=== PATIENT | female | born 1960 | race Caucasian/White ===

== ENCOUNTER 2017-10-09 06:30 | Day surgery (SDC) | payer BC ==
[2017-10-09] MEDS ORDERED: ceFAZolin 1 GM Vial ONE (06:35)
[2017-10-09] MEDS ORDERED: Lidocaine 1% 30 ML SDV ONE (06:50)
[2017-10-09] MEDS ORDERED: Bupivacaine 0.25% 30 ML SDV ONE (06:50)
[2017-10-09] MEDS ORDERED: Lactated Ringers 1,000 ML IV SCH (07:00)
[2017-10-09] MEDS ORDERED: Lidocaine 1%/Sod Bicarbonate in NS 8.4% 1 ML Syringe IDERM PRN (07:00)
[2017-10-09] MEDS ORDERED: Sodium Chloride 0.9% 10 ML Syringe FLUSH PRN (07:00)
[2017-10-09 07:52] VITALS: BP 140/58
--- NOTE | 2017-10-13 07:05 | PCM.OPNOTE ---
- General Post-Op/Procedure Note Date of Surgery/Procedure: 10/09/17 Operative Procedure(s): left third and fourth finger a1 randal release Pre Op Diagnosis: left third and fourth stenosing tenosynovitis Post-Op Diagnosis: Same Anesthesia Technique: Local Primary Surgeon: Hector Coats Head Of Talent Management: Mariama Mcdonald in mLs: 5 Complications: None Condition: Good
--- NOTE | 2017-10-15 10:22 | OR ---
DATE OF OPERATION: 10/09/2017 SURGEON: Hector Coats MD OPERATION PERFORMED: Left 3rd and 4th finger A1 randal release. PREOPERATIVE DIAGNOSIS: Left 3rd and 4th finger stenosing tenosynovitis. POSTOPERATIVE DIAGNOSIS: Left 3rd and 4th finger stenosing tenosynovitis. ANESTHESIA: Local. ANESTHESIOLOGIST: None. BELLMAN: Mariama Mcdonald PA-C. ESTIMATED BLOOD LOSS: 5 mL. COMPLICATIONS: None. CONDITION: Stable. DESCRIPTION OF PROCEDURE: The patient was identified in the preop holding area where the proper site was marked and identified by the surgeon. The patient was taken back to the operative theater where the left upper extremity was sterilely prepped and draped in the usual sterile fashion. OR time-out was performed. The patient did not receive antibiotics, not indicated for soft tissue hand procedure at this time. A 1% lidocaine without epinephrine and 0.25% lidocaine without epinephrine was used to anesthetize over the A1 pulleys of both the 3rd and 4th fingers of left hand. Then, an Esmarch was used on the forearm as the tourniquet. A standard transverse incision was made over first the 3rd finger. Blunt dissection was taken down the A1 randal. Ragnell retractors were placed medial and laterally to protect the neurovascular bundles. Hampton blade was then used to resect the A1 randal and was found to have adequate excursion of the tendon with no tendon adhesions. At this time, attention was turned to the 4th finger. A same transverse incision. Again, the Ragnell retractors were placed and a Hampton blade again was used for resection of the A1 randal. At this time, it was noted to be significantly thickened, so I did resect part of the A1 randal completely. At this time, the tendon was brought through the wound bed and the patient made a full fist and she had no triggering noticed at this time. Adequate saline was irrigated through the wound. 4-0 nylon simple suture was used for closure of the skin. The patient had sterile soft dressing applied and sent to PACU in stable condition. JONA /[id number]
== END 2017-10-09 08:10 | disposition home or self-care (01) ==
LOC: JD.SDS 06:30
PROVIDERS: ATTEND Orthopaedic Surgery
DX: M65.842 Other synovitis and tenosynovitis, left hand (principal); M65.342 Trigger finger, left ring finger; M65.332 Trigger finger, left middle finger; I10 Essential (primary) hypertension; E10.9 Type 1 diabetes mellitus without complications; E03.9 Hypothyroidism, unspecified; F41.9 Anxiety disorder, unspecified; Z87.891 Personal history of nicotine dependence; Z79.899 Other long term (current) drug therapy; Z88.8 Allergy status to other drugs, medicaments and biological substances
CPT/HCPCS: 26055; 87641; J0690; J3490; J7050; J7120

== ENCOUNTER 2019-12-04 02:32 | Emergency (ER) | payer BC ==
[2019-12-04 02:44] VITALS: PULSE 79
[2019-12-04] MEDS ORDERED: HYDROmorphone 1 MG/ML Syringe IVPUSH ONE ×2 (03:03→04:35)
[2019-12-04] MEDS ORDERED: Tamsulosin 0.4 MG Cap.ER PO ONE (03:03)
[2019-12-04] MEDS ORDERED: Ketorolac 30 MG/ML SDV IVPUSH STA (03:04)
[2019-12-04] MEDS ORDERED: Ondansetron 4 MG/2 ML SDV IVPUSH ONE (03:04)
--- NOTE | 2019-12-04 03:12 | EDM.PDOC ---
ED HPI GENERAL MEDICAL PROBLEM - General Chief Complaint: Flank Pain Stated Complaint: right side lower back pain Time Seen by Provider: 12/04/19 02:47 Source of Information: Reports: Patient, Family () History Limitations: Reports: No Limitations - History of Present Illness INITIAL COMMENTS - FREE TEXT/NARRATIVE: Mrs. Gaming is a very pleasant 59-year-old woman with a past medical history significant for kidney stones, who now presents to the ED stating that she was woken around 01:30 this morning with sudden-onset sharp right flank pain. The pain radiates to her right lower quadrant. It is constant, and she has not identified any modifiers, although she states that she took some ibuprofen around 01:30, which seems to have helped a bit. She has had nausea and dry heaves. No urinary symptoms. She states that her symptoms are similar to a prior kidney stone. Here in the ED, the patient is found to be hemodynamically stable, afebrile, saturating 96% on room air. Other than this morning's symptoms, the patient denies recent fever, chills, sore throat, ear pain, nasal or sinus congestion, cough, dyspnea, chest pain, palpitations, vomiting, constipation, diarrhea, urinary symptoms, recent weight gain or weight loss, recent bloody bowel movements or black bowel movements, recent joint aches, headaches, or rashes. The patient's PCP is Silvana Hernandez NP. Her Orthopedic Surgeon is Dr. Hector Coats. Treatments BOTTOM SPRAYER: Reports: Other (see below) Other Treatments BOTTOM SPRAYER: ibruprofen 600 mg Right Lower Flank Pain Score (Numeric/FACES): 9 - Related Data Allergies Allergy/AdvReac Type Severity Reaction Status Date / Time benazepril Allergy Cough Verified 12/04/19 02:41 cortisone Allergy hyperglycem Verified 12/04/19 02:41 ia enalapril Allergy bloating Verified 12/04/19 02:41 Home Meds: Home Meds Citalopram Hydrobromide [Celexa] 40 mg PO DAILY 12/20/15 [History] Gabapentin [Neurontin] 800 mg PO QID 12/20/15 [History] Metoprolol Tartrate 50 mg PO DAILY 12/20/15 [History] Nortriptyline HCl [Pamelor] 100 mg PO BEDTIME 12/20/15 [History] Clobetasol [Clobetasol 0.05%] 1 dose TOP TID 10/08/17 [History] Furosemide [Lasix] 20 mg PO DAILY PRN 10/08/17 [History] Insulin Aspart [NovoLOG] 1 dose SQ ASDIRECTED 10/08/17 [History] Levothyroxine Sodium [Synthroid] 175 mcg PO DAILY 10/08/17 [History] Losartan [Cozaar] 100 mg PO DAILY 10/08/17 [History] Travoprost [Travatan Z] 1 drop EYEBOTH BEDTIME 10/08/17 [History] ondansetron HCL [Zofran] 8 g PO Q6H PRN 10/08/17 [History] Acetaminophen/oxyCODONE [Percocet 325-5 MG] 1 tab PO Q4HR PRN #15 tab 11/29/17 [Rx] Acetaminophen/oxyCODONE [Percocet 325-5 MG] 1 - 2 tab PO Q6H PRN #20 tab 12/04/19 [Rx] Ondansetron [Zofran ODT] 1 tab PO Q8H PRN #10 tab.dis 12/04/19 [Rx] Tamsulosin HCl [Flomax] 1 cap PO QAM PRN #10 cap.er.24h 12/04/19 [Rx] Past Medical History HEENT History: Reports: Impaired Vision Cardiovascular History: Reports: Hypertension Respiratory History: Reports: Sleep Apnea (nightly CPAP 9) Genitourinary History: Reports: Diabetic Nephropathy, Renal Calculus Neurological History: Reports: Migraines, Neuropathy, Diabetic Psychiatric History: Reports: Anxiety (untreated) Endocrine/Metabolic History: Reports: Diabetes, Type I, Hypothyroidism, Obesity/BMI 30+ - Past Surgical History HEENT Surgical History: Reports: Oral Surgery (wisdom teeth extraction), Tonsillectomy GI Surgical History: Reports: Appendectomy, Cholecystectomy (late 1990s), Colonoscopy (x 1), EGD (x 1) Female Surgical History: Reports: Section (x 2), Hysterectomy (partial), Tubal Ligation Neurological Surgical History: Reports: Other (See Below) (Neurostimulator) Musculoskeletal Surgical History: Reports: Arthroscopic Knee (right, x 3), Other (See Below) (Right thumb fusion. Left trigger finger release.) Social & Family History - Family History Family Medical History: Noncontributory - Tobacco Use Smoking Status *Q: Former Smoker Years of Tobacco use: 12 Packs/Tins Daily: 0.5 Month/Year Tobacco Last Used: Quit 1991 - Caffeine Use Caffeine Use: Reports: Coffee - Alcohol Use Alcohol Use History: Yes Alcohol Use Frequency: Rarely - Recreational Drug Use Recreational Drug Use: No - Living Situation & Occupation Living situation: Reports: , with Spouse Occupation: Employed ([employer]) ED ROS GENERAL - Review of Systems Review Of Systems: Comprehensive ROS is negative, except as noted in HPI. ED EXAM, RENAL/ - Physical Exam Exam: See Below Exam Limited By: No Limitations General Appearance: Alert, WD/WN, Mild Distress (appears uncomfortable) Eye Exam: Bilateral Eye: EOMI, Normal Inspection Ears: Normal External Exam, Hearing Grossly Normal Nose: Normal Inspection Throat/Mouth: Normal Inspection, Normal Lips, Normal Voice, No Airway Compromise Head: Atraumatic, Normocephalic Neck: Normal Inspection, Full Range of Motion Respiratory/Chest: No Respiratory Distress, Lungs Clear, Normal Breath Sounds, No Accessory Muscle Use Cardiovascular: Normal Peripheral Pulses, Regular Rate, Rhythm, No Gallop, No JVD, No Murmur, No Rub GI/Abdominal: Normal Bowel Sounds, Soft, No Organomegaly, No Distention, No Abnormal Bruit, No Mass, Tender (Mild, right lower quadrant only. Completely nontender elsewhere.) (Female) Exam: Deferred Rectal (Female) Exam: Deferred Back Exam: Normal Inspection, Full Range of Motion, CVA Tenderness (R). No: CVA Tenderness (L) Extremities: Normal Inspection, Normal Range of Motion, Normal Capillary Refill Neurological: Alert, Oriented, Normal Cognition, No Motor/Sensory Deficits Psychiatric: Normal Affect Skin Exam: Warm, Dry, Intact, Normal Color, No Rash Course - Vital Signs Last Recorded V/S: Last Vital Signs Temp 36.6 C 12/04/19 02:42 Pulse 79 12/04/19 02:42 Resp 20 12/04/19 02:42 BP Pulse Ox 96 12/04/19 02:42 - Orders/Labs/Meds Orders: Active Orders 24 hr Category Date Time Status Strain Urine [RC] ASDIRECTED Care 12/04/19 04:35 Ordered Abdomen Pelvis wo Cont [CT] Stat Exams 12/04/19 03:03 Taken HYDROmorphone [Dilaudid] Med 12/04/19 04:35 Once 1 mg IVPUSH ONETIME ONE Sodium Chloride 0.9% [Normal Saline] 1,000 ml Med 12/04/19 03:15 Active IV ASDIRECTED Medication Orders Sodium Chloride (Normal Saline) 1,000 mls @ 150 mls/hr IV ASDIRECTED ADDISON Last Admin: 12/04/19 03:10 Dose: 150 mls/hr Documented by: DENY Labs: Laboratory Tests 12/04/19 Range/Units 03:35 Urine Color Yellow (Yellow) Urine Appearance Clear (Clear) Urine pH 5.0 (5.0-8.0) Ur Specific Roe > or = 1.030 (1.005-1.030) Urine Protein Negative (Negative) Urine Glucose (UA) Negative (Negative) Urine Ketones Negative (Negative) Urine Occult Blood 2+ H (Negative) Urine Nitrite Negative (Negative) Urine Bilirubin 1+ H (Negative) Urine Urobilinogen 0.2 (0.2-1.0) Ur Leukocyte Esterase Negative (Negative) Urine RBC 5-10 H (0-5) /hpf Urine WBC 5-10 H (0-5) /hpf Ur Epithelial Cells 10-20 H (0-5) /hpf Urine Bacteria Few (FEW) /hpf Urine Mucus Many H (FEW) /hpf Meds: Medications Generic Name Dose Route Start Last Admin Trade Name Freq PRN Reason Stop Dose Admin Sodium Chloride 1,000 mls @ 150 mls/hr 12/04/19 03:15 12/04/19 03:10 Normal Saline IV 150 mls/hr ASDIRECTED ADDISON Administration Discontinued Medications Generic Name Dose Route Start Last Admin Trade Name Freq PRN Reason Stop Dose Admin Hydromorphone HCl 1 mg 12/04/19 03:03 12/04/19 03:14 Dilaudid IVPUSH 12/04/19 03:04 1 mg ONETIME ONE Administration Ketorolac Tromethamine 30 mg 12/04/19 03:04 12/04/19 03:12 Toradol IVPUSH 12/04/19 03:05 30 mg ONETIME STA Administration Ondansetron HCl 4 mg 12/04/19 03:04 12/04/19 03:11 Zofran IVPUSH 12/04/19 03:05 4 mg ONETIME ONE Administration Tamsulosin HCl 0.4 mg 12/04/19 03:03 12/04/19 03:16 Flomax PO 12/04/19 03:04 0.4 mg ONETIME ONE Administration - Re-Assessments/Exams Free Text/Narrative Re-Assessment/Exam: 12/04/19 03:05 As above, the patient developed sudden-onset right flank pain that radiates to her right lower quadrant, along with nausea and dry heaves around 01:30 this morning. She has minimal right lower quadrant tenderness, with significant reproducible right CVA tenderness. Her history and physical examination are entirely consistent with a right ureterolith. I have ordered a work-up that includes a urinalysis by quick catheter, and a CT of the abdomen and pelvis without contrast. In the meantime, the patient will be given oral Flomax, IV Dilaudid, IV Toradol, IV Zofran, and IV fluid. 12/04/19 04:29 The patient's urinalysis is remarkable for 2+ occult blood with 5-10 RBCs, neg ative leukocyte esterase with 5-10 WBCs, nitrate negative with few bacteria, and 10-[address] of the abdomen and pelvis without contrast is read by [facility] as: 1. 3 mm RIGHT UVJ ureterolith causes moderate RIGHT hydronephrosis. 2. Additional nonemergent CT findings above. 12/04/19 04:36 Test results discussed with the patient and her . Given the size and location of the stone, the patient will almost certainly pass this on her own. She will be given a urine strainer prior to discharge. I recommended that she stays adequately hydrated. I would like her to take [id number] ibuprofen on a regular basis. She will be discharged home with prescriptions for Flomax, [place], and Zofran. I will refer her to a Urologist. Departure - Departure Time of Disposition: 04:37 Disposition: Home, Self-Care 01 Condition: Good Clinical Impression: Ureterolithiasis - Discharge Information *PRESCRIPTION DRUG MONITORING PROGRAM REVIEWED*: Not Applicable *COPY OF PRESCRIPTION DRUG MONITORING REPORT IN PATIENT SOFY: Not Applicable Prescriptions: Tamsulosin HCl [Flomax] 1 cap PO QAM PRN #10 cap.er.24h PRN Reason: Pain Acetaminophen/oxyCODONE [Percocet 325-5 MG] 1 - 2 tab PO Q6H PRN #20 tab PRN Reason: Pain (Severe 7-10) Ondansetron [Zofran ODT] 1 tab PO Q8H PRN #10 tab.dis PRN Reason: Nausea/Vomiting Referrals: Hector Coats MD [Physician] - Silvana Hernandez NP [Primary Care Provider] - Jesus Delgdao MD [Ordering Only Provider] - Forms: ED Department Discharge Additional Instructions: You were seen in the emergency room after developing sudden onset right flank pain which radiated around to your lower right abdomen, along with nausea and dry heaves. Work-up in the ER included a urinalysis and a CT scan of your abdomen and pelvis without contrast. Your work-up found that you have a 3 mm stone in your right ureter, just above your bladder. Based on the size and location of the stone, you will almost certainly pass it on your own. We recommend that you stay adequately hydrated. Strain all of your urine. If you capture the stone, take it to your provider for analysis. We recommend that you take [id number] ibuprofen, 3 to 4 tablets (600-800 mg) [id number], with food, as needed for discomfort. You may take 1 to 2 tablets of the opioid pain reliever Percocet up to every 6 hours, as needed for pain not relieved by ibuprofen. If you take Percocet, do not drive for 12 hours afterwards. Percocet may cause constipation, so consider taking a stool softener. Take 1 tablet of the anti-spasm medicine Flomax every morning, starting tomorrow morning, 12/05/2019, as needed for pain. You may dissolve 1 tablet of the anti-nausea medicine Zofran on your tongue up to every 8 hours, as needed for nausea/vomiting. If you need a refill of any of your medicines, please follow-up with your PCP, Ndia Hernandez NP. The ER is not supposed to refill medications. If you continue to have pain after 1 week, please follow-up with the Urologist Dr. Jesus Delgado, in [place]. If any other problems, please do not hesitate to return to the ER. Sepsis Event Note (ED) - Evaluation Sepsis Screening Result: No Definite Risk - Focused Exam Vital Signs: Vital Signs Temp Pulse Resp Pulse Ox 12/04/19 02:42 36.6 C 79 20 96 - My Orders Last 24 Hours: My Active Orders 12/04/19 03:03 Abdomen Pelvis wo Cont [CT] Stat 12/04/19 03:15 Sodium Chloride 0.9% [Normal Saline] 1,000 ml IV ASDIRECTED 12/04/19 04:35 Strain Urine [RC] ASDIRECTED HYDROmorphone [Dilaudid] 1 mg IVPUSH ONETIME ONE - Assessment/Plan Last 24 Hours: My Active Orders 12/04/19 03:03 Abdomen Pelvis wo Cont [CT] Stat 12/04/19 03:15 Sodium Chloride 0.9% [Normal Saline] 1,000 ml IV ASDIRECTED 12/04/19 04:35 Strain Urine [RC] ASDIRECTED HYDROmorphone [Dilaudid] 1 mg IVPUSH ONETIME ONE
[2019-12-04] MEDS ORDERED: Sodium Chloride 0.9% 1,000 ML IV SCH (03:15)
--- NOTE | 2019-12-04 08:52 | CT ---
CT abdomen and pelvis Technique: Multiple axial sections were obtained from above the dome of the diaphragm inferiorly through the pubic symphysis. Intravenous and oral contrast not utilized. Study has been performed as a ureteral stone protocol. Comparison: Previous CT abdomen and pelvis study of 10/18/11. Findings: Noncontrast appearance of the liver shows no focal abnormality. Small hiatal hernia is noted. Spleen appears within normal limits. Surgical clips are seen from prior cholecystectomy. Pancreas shows no abnormality. Soft tissue nodule is noted medial to the spleen compatible with a sensory splenic tissue. Aorta shows no aneurysm. No retroperitoneal adenopathy or mesenteric abnormalities are seen. No pelvic mass or adenopathy is seen. Dilated right renal pelvis and right ureter is seen. This finding is caused by a 3 mm obstructing calculus within the distal right ureter at the UVJ. No additional abnormal calcifications are seen along the course of the ureters. No abnormal calcifications are seen within the kidneys. Bone window settings were reviewed which shows scattered degenerative change within the spine. Small fat-containing umbilical hernia is noted. Impression: 1. Obstructing stone within the distal right ureter located at the UVJ measuring approximately 3 mm. 2. Other nonacute findings as described above. Diagnostic code #3 This report was dictated in MDT I agree with preliminary report from [facility], finalized on 12/04/19, 5:23 AM Central Daylight Time
== END 2019-12-04 05:06 | disposition home or self-care (01) ==
LOC: JD.ED 02:32
DX: N13.2 Hydronephrosis with renal and ureteral calculous obstruction (principal); I10 Essential (primary) hypertension; E10.21 Type 1 diabetes mellitus with diabetic nephropathy; E10.40 Type 1 diabetes mellitus with diabetic neuropathy, unspecified; E03.9 Hypothyroidism, unspecified; E66.9 Obesity, unspecified; F41.9 Anxiety disorder, unspecified; G43.909 Migraine, unspecified, not intractable, without status migrainosus; Z90.49 Acquired absence of other specified parts of digestive tract; Z90.710 Acquired absence of both cervix and uterus; Z98.51 Tubal ligation status; Z98.890 Other specified postprocedural states; Z88.8 Allergy status to other drugs, medicaments and biological substances; Z79.899 Other long term (current) drug therapy; Z87.891 Personal history of nicotine dependence; Z68.43 Body mass index [BMI] 50.0-59.9, adult
CPT/HCPCS: 74176; 81001; 96374; 96375; 96376; 99284; A9270; J1170; J1885; J2405; J7030; 99283

== ENCOUNTER 2021-09-10 16:54 | Emergency (ER) | payer BC ==
[2021-09-10 17:05] VITALS: PULSE 87
[2021-09-10] MEDS ORDERED: HYDROmorphone 1 MG/ML Syringe IM ONE (17:19)
[2021-09-10] MEDS ORDERED: Ketorolac 60 MG/2 ML SDV IM ONE (18:27)
[2021-09-10] MEDS ORDERED: Sodium Chloride 0.9% 10 ML Syringe FLUSH PRN (18:44)
[2021-09-10] MEDS ORDERED: Ondansetron 4 MG/2 ML SDV IVPUSH ONE (18:48)
[2021-09-10] MEDS ORDERED: Ketorolac 30 MG/ML SDV IVPUSH ONE (18:58)
[2021-09-10 22:23] VITALS: BP 122/64
== END 2021-09-10 22:00 | disposition home or self-care (01) ==
LOC: JD.ED 16:54
DX: M79.604 Pain in right leg (principal); M54.31 Sciatica, right side; I10 Essential (primary) hypertension; E10.40 Type 1 diabetes mellitus with diabetic neuropathy, unspecified; E03.9 Hypothyroidism, unspecified; E66.9 Obesity, unspecified; Z68.43 Body mass index [BMI] 50.0-59.9, adult; Z88.8 Allergy status to other drugs, medicaments and biological substances; Z79.899 Other long term (current) drug therapy
CPT/HCPCS: 36415; 72100; 73502; 80053; 82947; 84484; 85025; 85379; 85610; 85730; 93005; 96372; 96374; 96375; 99284; J1170; J1885; J2405; J3490

== ENCOUNTER 2023-01-20 10:00 | Emergency (ER) | payer BC ==
[2023-01-20] MEDS ORDERED: Metoclopramide 10 MG/2 ML SDV IVPUSH ONE (11:10)
[2023-01-20] MEDS ORDERED: diphenhydrAMINE 50 MG/ML SDV IVPUSH ONE (11:11)
[2023-01-20] MEDS ORDERED: HYDROmorphone 1 MG/ML Syringe IVPUSH ONE ×3 (11:12→15:51)
[2023-01-20] MEDS ORDERED: HYDROmorphone 0.5 MG/0.5 ML Syringe IVPUSH ONE (11:12)
[2023-01-20] MEDS ORDERED: Dextrose 5%-0.9% NaCl 1,000 ML IV SCH (11:15)
[2023-01-20 12:10] LABS: CORONAVIRUS COVID-19 NAA NEGATIVE (NEGATIVE); INFLUENZA A NAA NEGATIVE (NEGATIVE); RESPIRATORY SYNCYTIAL VIR NAA NEGATIVE (NEGATIVE)
[2023-01-20] MEDS ORDERED: Dexamethasone 4 MG/ML 5 ML MDV IV ONE (16:55)
[2023-01-20 18:40] VITALS: BP 127/71; PULSE 64
== END 2023-01-20 18:30 | disposition home or self-care (01) ==
LOC: JD.ED 10:00
DX: M50.90 Cervical disc disorder, unspecified, unspecified cervical region (principal); I10 Essential (primary) hypertension; E10.40 Type 1 diabetes mellitus with diabetic neuropathy, unspecified; E03.9 Hypothyroidism, unspecified; E66.9 Obesity, unspecified; Z68.43 Body mass index [BMI] 50.0-59.9, adult; Z86.16 Personal history of COVID-19; Z20.822 Contact with and (suspected) exposure to COVID-19; Z79.899 Other long term (current) drug therapy; Z88.8 Allergy status to other drugs, medicaments and biological substances
CPT/HCPCS: 0241U; 70450; 96361; 96374; 96375; 96376; 99284; J1100; J1170; J1200; J2765; J7042; 99283

== ENCOUNTER 2023-08-15 08:30 | Inpatient (IN) | payer BC ==
[2023-08-15] MEDS: Ondansetron 4 MG/2 ML SDV IVPUSH ONE (09:01)
[2023-08-15] MEDS: Sodium Chloride 0.9% 10 ML Syringe FLUSH PRN ×2 (09:01)
[2023-08-15 09:04] LABS: BASOPHILS PERCENT AUTO 0.2 % (0.0-1.0); EOSINOPHILS PERCENT AUTO 0.5 % (0.0-6.0); HEMATOCRIT 37.2 % (37.0-47.0); HEMOGLOBIN 12.6 gm/dl (12.0-16.0); IMMATURE GRAN ABSOLUTE AUTO 0.09 K/mm3 (0.00-0.05); IMMATURE GRAN PERCENT AUTO 1.1 % (0.0-0.4); LYMPHOCYTES ABSOLUTE AUTO 0.7 K/mm3 (1.0-4.8); LYMPHOCYTES PERCENT AUTO 7.9 % (24.0-44.0); MEAN CORPUSCULAR HEMOGLOBIN 30.4 pg (28.0-32.0); MEAN CORPUSCULAR HGB CONC 33.9 g/dl (32.0-36.0); MEAN PLATELET VOLUME 9.5 fl (9.4-12.3); MONOCYTES ABSOLUTE AUTO 0.2 K/mm3 (0.0-0.8); MONOCYTES PERCENT AUTO 1.8 % (0.0-8.0); NEUTROPHILS ABSOLUTE AUTO 7.2 K/mm3 (1.8-7.7); NEUTROPHILS PERCENT AUTO 88.5 % (41.0-71.0); PLATELET COUNT,PLT 188 K/mm3 (150-400); RED BLOOD CELL COUNT 4.14 M/mm3 (4.10-5.30); WHITE BLOOD CELL COUNT,WBC 8.19 K/mm3 (3.9-11.3)
[2023-08-15 09:11] LABS: MEAN CORPUSCULAR VOLUME 89.9 fl (83.0-99.0)
[2023-08-15 09:29] LABS: BASE EXCESS ARTERIAL -2.9 (-2-2.0); BICARBONATE,ARTERIAL 22.7 meq/L (22.0-26.0); O2 SATURATION ARTERIAL 90.4 % (96.0-97.0); PCO2 ARTERIAL 45.5 mmHg (35.0-45.0)
[2023-08-15 09:55] LABS: A/G RATIO 0.9 (1-2); ALANINE AMINOTRANSFERASE,ALT 23 U/L (14-59); ALBUMIN 3.4 g/dl (3.4-5.0); ALKALINE PHOSPHATASE 145 U/L (46-116); ANION GAP 17.4 (5-15); ASPARTATE AMNIOTRANSFERASE,AST 14 U/L (15-37); BILIRUBIN TOTAL 1.1 mg/dL (0.2-1.0); BLOOD UREA NITROGEN,BUN 30 mg/dL (7-18); BUN/CREATININE RATIO 16.7 (14-18); CALCIUM 8.7 mg/dL (8.5-10.1); CARBON DIOXIDE,CO2 22 mEq/L (21-32); CHLORIDE,CL 95 mEq/L (98-107); CREATININE 1.8 mg/dL (0.55-1.02); ESTIMATED GFR 31 mL/min (>60); POTASSIUM,K 5.4 mEq/L (3.5-5.1); SODIUM,NA 129 mEq/L (136-145)
[2023-08-15 10:08] LABS: LACTIC ACID 2.7 mmol/L (0.4-2.0)
[2023-08-15 10:14] LABS: GLUCOSE RANDOM 648 mg/dL (70-99); TROPONIN I HIGH SENSITIVITY < 4 pg/mL (<=51)
[2023-08-15] MEDS: Promethazine 12.5 MG in Sodium Chloride 0.9% 50 ML IV ONE (10:23)
[2023-08-15] MEDS: Sodium Chloride 0.9% 1,000 ML IV ONE ×3 (10:24→12:36)
[2023-08-15] MEDS: Insulin Regular in 0.9 % NACL 100 ML IV SCH (10:28)
[2023-08-15 13:13] LABS: A/G RATIO 0.9 (1-2); ALBUMIN 2.9 g/dl (3.4-5.0); ANION GAP 13.9 (5-15); BILIRUBIN TOTAL 0.8 mg/dL (0.2-1.0); BUN/CREATININE RATIO 17.6 (14-18); CALCIUM 8.1 mg/dL (8.5-10.1); CREATININE 1.7 mg/dL (0.55-1.02); EST CRCL DRUG DOSING (CG) 32.51 mL/min; POTASSIUM,K 4.9 mEq/L (3.5-5.1); PROTEIN TOTAL,TP 6.1 g/dl (6.4-8.2)
[2023-08-15 15:09] LABS: APPEARANCE,URINE CLEAR (Clear); BILIRUBIN,URINE NEGATIVE (Negative); COLOR,URINE YELLOW (Yellow); GLUCOSE,URINE 2+ (Negative); KETONES,URINE 2+ (Negative); LEUKOCYTE ESTERASE,URINE TRACE (Negative); NITRITE,URINE NEGATIVE (Negative); OCCULT BLOOD,URINE NEGATIVE (Negative); PH,URINE 5.5 (5.0-8.0); PROTEIN,URINE NEGATIVE (Negative); UROBILINOGEN,URINE 0.2 (0.2-1.0)
[2023-08-15 15:16] LABS: BACTERIA,URINE FEW /hpf (FEW); EPITHELIAL CELLS,URINE 0-5 /hpf (0-5); MUCUS,URINE FEW /hpf (FEW); RBC,URINE 0-5 /hpf (0-5)
[2023-08-15] MEDS ORDERED: Sodium Chloride 0.9% 1,000 ML IV SCH (15:45)
[2023-08-15] MEDS ORDERED: Albuterol 6.7 GM Inhaler INH PRN (15:56)
[2023-08-15] MEDS: Furosemide 20 MG Tab PO SCH (20:21)
[2023-08-15] MEDS: Nortriptyline 25 MG Cap PO SCH (20:22)
[2023-08-15] MEDS: busPIRone 15 MG Tab PO SCH (20:22)
[2023-08-15] MEDS: Cetirizine 10 MG Tab PO SCH (20:22)
[2023-08-15] MEDS: Gabapentin 100 MG Cap PO ONE (20:22)
[2023-08-15] MEDS: Ondansetron 4 MG/2 ML SDV IV PRN (20:28)
[2023-08-15] MEDS: Formoterol/Mometasone 100-5 MCG 8.8 GM Inhaler IH SCH (20:48)
[2023-08-16 05:30] LABS: A/G RATIO 0.9 (1-2); ANION GAP 10.6 (5-15); BILIRUBIN TOTAL 0.4 mg/dL (0.2-1.0); CALCIUM 8.3 mg/dL (8.5-10.1); CREATININE 1.5 mg/dL (0.55-1.02); EST CRCL DRUG DOSING (CG) 36.85 mL/min; POTASSIUM,K 4.6 mEq/L (3.5-5.1); PROTEIN TOTAL,TP 6.4 g/dl (6.4-8.2)
[2023-08-16] MEDS: Pantoprazole 40 MG Tab.CR PO SCH (06:15)
[2023-08-16] MEDS: Levothyroxine 100 MCG Tab PO SCH (06:15)
[2023-08-16 08:52] VITALS: PULSE 92
[2023-08-16] MEDS: Gabapentin 100 MG Cap PO SCH (08:55)
[2023-08-16] MEDS: Rosuvastatin 10 MG Tab PO SCH (08:57)
[2023-08-16] MEDS: Metoprolol Tartrate 50 MG Tab PO SCH (08:57)
[2023-08-16] MEDS: buPROPion 150 MG Tab.ER PO SCH (08:58)
[2023-08-16] MEDS: Citalopram 20 MG Tab PO SCH (08:59)
[2023-08-16] MEDS: Enoxaparin 40 MG/0.4 ML Syringe SUBCUT SCH (09:00)
[2023-08-16] MEDS: Acetaminophen 325 MG Tab PO PRN (09:36)
[2023-08-16] MEDS: Ketorolac 15 MG/ML SDV IVPUSH ONE (11:35)
[2023-08-16 19:45] VITALS: BP 155/82
== END 2023-08-16 12:53 | disposition home or self-care (01) | DRG 420 ==
LOC: JD.ED 08:30 → OBSVTOIN 15:04 → JD.ICU 15:04
PROVIDERS: ADMIT Internal Medicine; ATTEND Internal Medicine
DX: E10.65 Type 1 diabetes mellitus with hyperglycemia (principal); I12.9 Hypertensive chronic kidney disease with stage 1 through stage 4 chronic kidney disease, or unspecified chronic kidney disease; G43.909 Migraine, unspecified, not intractable, without status migrainosus; E10.40 Type 1 diabetes mellitus with diabetic neuropathy, unspecified; M50.90 Cervical disc disorder, unspecified, unspecified cervical region; E10.22 Type 1 diabetes mellitus with diabetic chronic kidney disease; E10.69 Type 1 diabetes mellitus with other specified complication; E66.01 Morbid (severe) obesity due to excess calories; Z68.43 Body mass index [BMI] 50.0-59.9, adult; N18.9 Chronic kidney disease, unspecified; E87.0 Hyperosmolality and hypernatremia; N17.9 Acute kidney failure, unspecified; F41.9 Anxiety disorder, unspecified; E03.9 Hypothyroidism, unspecified; E78.5 Hyperlipidemia, unspecified; G47.30 Sleep apnea, unspecified; T38.0X5A Adverse effect of glucocorticoids and synthetic analogues, initial encounter; Z88.8 Allergy status to other drugs, medicaments and biological substances; Z90.49 Acquired absence of other specified parts of digestive tract; Z90.710 Acquired absence of both cervix and uterus; Z98.49 Cataract extraction status, unspecified eye; Z79.899 Other long term (current) drug therapy; Z87.442 Personal history of urinary calculi; Z79.890 Hormone replacement therapy; Z86.16 Personal history of COVID-19; Z98.51 Tubal ligation status
CPT/HCPCS: 36415; 36600; 80053; 81001; 82010; 82803; 82947; 83605; 83690; 83735; 83880; 84484; 85025; 87040; 93005; 94640; 94762; A9270-GY; J1650; J1815; J1885; J2405; J2550; J3490; J7030

== ENCOUNTER 2023-11-12 17:40 | Emergency (ER) | payer BC ==
[2023-11-12] MEDS ORDERED: Sodium Chloride 0.9% 10 ML Syringe FLUSH PRN (17:46)
[2023-11-12] MEDS: HYDROmorphone 0.5 MG/0.5 ML Syringe IVPUSH ONE (17:56)
[2023-11-12 18:23] LABS: BASOPHILS PERCENT AUTO 0.3 % (0.0-1.0); EOSINOPHILS ABSOLUTE AUTO 0.2 K/mm3 (0.0-0.4); EOSINOPHILS PERCENT AUTO 2.3 % (0.0-6.0); HEMATOCRIT 40.2 % (37.0-47.0); HEMOGLOBIN 13.4 gm/dl (12.0-16.0); IMMATURE GRAN ABSOLUTE AUTO 0.04 K/mm3 (0.00-0.05); IMMATURE GRAN PERCENT AUTO 0.5 % (0.0-0.4); LYMPHOCYTES ABSOLUTE AUTO 1.1 K/mm3 (1.0-4.8); LYMPHOCYTES PERCENT AUTO 12.5 % (24.0-44.0); MEAN CORPUSCULAR HGB CONC 33.3 g/dl (32.0-36.0); MEAN CORPUSCULAR VOLUME 90.1 fl (83.0-99.0); MEAN PLATELET VOLUME 9.5 fl (9.4-12.3); MONOCYTES ABSOLUTE AUTO 0.4 K/mm3 (0.0-0.8); MONOCYTES PERCENT AUTO 4.8 % (0.0-8.0); NEUTROPHILS ABSOLUTE AUTO 6.9 K/mm3 (1.8-7.7); NEUTROPHILS PERCENT AUTO 79.6 % (41.0-71.0); PLATELET COUNT,PLT 227 K/mm3 (150-400); RED BLOOD CELL COUNT 4.46 M/mm3 (4.10-5.30); WHITE BLOOD CELL COUNT,WBC 8.67 K/mm3 (3.9-11.3)
[2023-11-12 18:46] LABS: ALBUMIN 3.5 g/dl (3.4-5.0); ANION GAP 13.7 (5-15); BILIRUBIN TOTAL 0.6 mg/dL (0.2-1.0); BUN/CREATININE RATIO 12.7 (14-18); CALCIUM 8.9 mg/dL (8.5-10.1); CREATININE 1.5 mg/dL (0.55-1.02); EST CRCL DRUG DOSING (CG) 36.85 mL/min; POTASSIUM,K 3.7 mEq/L (3.5-5.1)
[2023-11-12] MEDS: Propofol 200 MG/20 ML SDV IVPUSH ONE (18:49)
[2023-11-12] MEDS: Ondansetron 4 MG/2 ML SDV IVPUSH ONE (18:49)
[2023-11-12] MEDS: Acetaminophen/oxyCODONE 325-5 MG Tab PO ONE (20:27)
[2023-11-12] MEDS: Ondansetron 4 MG Tab.DIS PO ONE (21:15)
[2023-11-13 04:42] VITALS: BP 116/87; PULSE 73
== END 2023-11-12 21:45 | disposition home or self-care (01) ==
LOC: JD.ED 17:40
DX: S82.892A Other fracture of left lower leg, initial encounter for closed fracture (principal); I10 Essential (primary) hypertension; E66.9 Obesity, unspecified; E10.9 Type 1 diabetes mellitus without complications; E03.9 Hypothyroidism, unspecified; Z68.43 Body mass index [BMI] 50.0-59.9, adult; Z88.8 Allergy status to other drugs, medicaments and biological substances; Z79.890 Hormone replacement therapy; Z79.4 Long term (current) use of insulin; Z79.899 Other long term (current) drug therapy; Z86.16 Personal history of COVID-19; Z90.49 Acquired absence of other specified parts of digestive tract; W01.0XXA Fall on same level from slipping, tripping and stumbling without subsequent striking against object, initial encounter
CPT/HCPCS: 27768; 27810; 36415; 73600-26-LT; 73600-LT; 73610-26-LT; 73610-LT; 80053; 85025; 96374; 96375; 99152; 99284; 99284-25; A9270-GY; J1170; J2405; J2704

== ENCOUNTER 2023-11-13 05:04 | Emergency (ER) | payer BC ==
[2023-11-13] MEDS: oxyCODONE 5 MG Tab PO ONE ×2 (05:36→08:00)
[2023-11-13 10:33] VITALS: BP 151/74; PULSE 84
== END 2023-11-13 09:35 | disposition home or self-care (01) ==
LOC: JD.ED 05:04
DX: M25.572 Pain in left ankle and joints of left foot (principal); S82.52XD Displaced fracture of medial malleolus of left tibia, subsequent encounter for closed fracture with routine healing; I10 Essential (primary) hypertension; E11.40 Type 2 diabetes mellitus with diabetic neuropathy, unspecified; E03.9 Hypothyroidism, unspecified; E66.9 Obesity, unspecified; Z86.16 Personal history of COVID-19; Z79.899 Other long term (current) drug therapy; Z79.4 Long term (current) use of insulin; Z88.8 Allergy status to other drugs, medicaments and biological substances; Z68.43 Body mass index [BMI] 50.0-59.9, adult; X58.XXXD Exposure to other specified factors, subsequent encounter
CPT/HCPCS: 99284; A9270

== ENCOUNTER 2024-01-07 11:12 | Emergency (ER) | payer BC ==
[2024-01-07 11:23] VITALS: PULSE 70
[2024-01-07] MEDS: Sodium Chloride 0.9% 10 ML Syringe FLUSH PRN (13:52)
[2024-01-07] MEDS: HYDROmorphone 0.5 MG/0.5 ML Syringe IVPUSH ONE (13:52)
[2024-01-07 14:29] VITALS: BP 101/52
== END 2024-01-07 14:17 ==
LOC: JD.ED 11:12
DX: S82.831A Other fracture of upper and lower end of right fibula, initial encounter for closed fracture (principal); I10 Essential (primary) hypertension; E10.21 Type 1 diabetes mellitus with diabetic nephropathy; E03.9 Hypothyroidism, unspecified; E66.9 Obesity, unspecified; Z86.16 Personal history of COVID-19; Z90.49 Acquired absence of other specified parts of digestive tract; Z90.710 Acquired absence of both cervix and uterus; Z79.899 Other long term (current) drug therapy; Z79.4 Long term (current) use of insulin; Z88.8 Allergy status to other drugs, medicaments and biological substances; W19.XXXA Unspecified fall, initial encounter
CPT/HCPCS: 72100; 73060; 73610; 96374; 99284; J1170; J3490

== ENCOUNTER 2024-01-23 07:41 | Emergency (ER) | payer BC ==
[2024-01-23] MEDS ORDERED: Metoclopramide 5 MG Tab PO ONE (08:16)
[2024-01-23] MEDS ORDERED: Ondansetron 8 MG in Sodium Chloride 0.9% 50 ML IV ONE (08:25)
[2024-01-23] MEDS: Metoclopramide 10 MG/2 ML SDV IVPUSH ONE (08:56)
[2024-01-23] MEDS: diphenhydrAMINE 50 MG/ML SDV IVPUSH ONE (08:56)
[2024-01-23] MEDS: Ketorolac 30 MG/ML SDV IVPUSH ONE (08:56)
[2024-01-23] MEDS: Sodium Chloride 0.9% 10 ML Syringe FLUSH PRN (08:56)
[2024-01-23 09:04] LABS: BASOPHILS PERCENT AUTO 0.6 % (0.0-1.0); EOSINOPHILS ABSOLUTE AUTO 0.2 K/mm3 (0.0-0.4); EOSINOPHILS PERCENT AUTO 2.2 % (0.0-6.0); HEMATOCRIT 38.4 % (37.0-47.0); HEMOGLOBIN 12.8 gm/dl (12.0-16.0); IMMATURE GRAN ABSOLUTE AUTO 0.03 K/mm3 (0.00-0.05); IMMATURE GRAN PERCENT AUTO 0.4 % (0.0-0.4); LYMPHOCYTES ABSOLUTE AUTO 1.2 K/mm3 (1.0-4.8); LYMPHOCYTES PERCENT AUTO 16.4 % (24.0-44.0); MEAN CORPUSCULAR HEMOGLOBIN 30.7 pg (28.0-32.0); MEAN CORPUSCULAR HGB CONC 33.3 g/dl (32.0-36.0); MEAN CORPUSCULAR VOLUME 92.1 fl (83.0-99.0); MEAN PLATELET VOLUME 9.5 fl (9.4-12.3); MONOCYTES ABSOLUTE AUTO 0.4 K/mm3 (0.0-0.8); MONOCYTES PERCENT AUTO 5.1 % (0.0-8.0); NEUTROPHILS ABSOLUTE AUTO 5.5 K/mm3 (1.8-7.7); NEUTROPHILS PERCENT AUTO 75.3 % (41.0-71.0); PLATELET COUNT,PLT 222 K/mm3 (150-400); RED BLOOD CELL COUNT 4.17 M/mm3 (4.10-5.30); WHITE BLOOD CELL COUNT,WBC 7.24 K/mm3 (3.9-11.3)
[2024-01-23 09:36] LABS: A/G RATIO 0.9 (1-2); ALBUMIN 3.2 g/dl (3.4-5.0); ANION GAP 11.9 (5-15); BILIRUBIN TOTAL 0.5 mg/dL (0.2-1.0); CREATININE 1.7 mg/dL (0.55-1.02); EST CRCL DRUG DOSING (CG) 32.51 mL/min; MAGNESIUM 1.7 mg/dL (1.8-2.4); POTASSIUM,K 3.9 mEq/L (3.5-5.1); PROTEIN TOTAL,TP 6.7 g/dl (6.4-8.2); TSH 1.445 uIU/mL (0.358-3.74)
[2024-01-23] MEDS: Sodium Chloride 0.9% 1,000 ML IV ONE (12:02)
[2024-01-23] MEDS: LORazepam 2 MG/ML SDV IVPUSH ONE (12:02)
[2024-01-23] MEDS: Acetaminophen/oxyCODONE 325-5 MG Tab PO ONE (12:02)
[2024-01-23 14:15] VITALS: BP 124/79; PULSE 82
== END 2024-01-23 15:15 | disposition home or self-care (01) ==
LOC: JD.ED 07:41
DX: R51.9 Headache, unspecified (principal); I10 Essential (primary) hypertension; E10.40 Type 1 diabetes mellitus with diabetic neuropathy, unspecified; E03.9 Hypothyroidism, unspecified; E66.9 Obesity, unspecified; Z86.16 Personal history of COVID-19; Z90.49 Acquired absence of other specified parts of digestive tract; Z90.710 Acquired absence of both cervix and uterus; Z79.899 Other long term (current) drug therapy; Z79.51 Long term (current) use of inhaled steroids; Z79.1 Long term (current) use of non-steroidal anti-inflammatories (NSAID); Z79.4 Long term (current) use of insulin; Z79.890 Hormone replacement therapy; Z68.43 Body mass index [BMI] 50.0-59.9, adult
CPT/HCPCS: 36415; 80053; 83540; 83735; 84443; 85025; 96361; 96374; 96375; 99283; A9270; J1200; J1885; J2060; J2765; J3490; J7030

== ENCOUNTER 2024-04-06 15:04 | Emergency (ER) | payer BC ==
[2024-04-06] MEDS ORDERED: Naloxone 0.4 MG/ML SDV IVPUSH PRN (17:55)
[2024-04-06] MEDS: HYDROmorphone 0.5 MG/0.5 ML Syringe IM ONE (18:20)
[2024-04-06 20:04] VITALS: BP 128/71; PULSE 77
== END 2024-04-06 20:10 | disposition home or self-care (01) ==
LOC: JD.ED 15:04
DX: S93.491A Sprain of other ligament of right ankle, initial encounter (principal); I10 Essential (primary) hypertension; E10.40 Type 1 diabetes mellitus with diabetic neuropathy, unspecified; E03.9 Hypothyroidism, unspecified; E66.9 Obesity, unspecified; Z86.16 Personal history of COVID-19; Z90.49 Acquired absence of other specified parts of digestive tract; Z90.710 Acquired absence of both cervix and uterus; Z79.4 Long term (current) use of insulin; Z79.1 Long term (current) use of non-steroidal anti-inflammatories (NSAID); Z79.890 Hormone replacement therapy; Z79.899 Other long term (current) drug therapy; Z79.51 Long term (current) use of inhaled steroids; Z88.8 Allergy status to other drugs, medicaments and biological substances; X50.1XXA Overexertion from prolonged static or awkward postures, initial encounter
CPT/HCPCS: 73610; 96372; 99283; J1171